=== PATIENT | male | born 1970 | race Caucasian/White ===

== ENCOUNTER 2021-05-29 14:41 | Emergency (ER) | payer OTHER ==
[~2021-05-29] VITALS: Ht 167.6 cm; Wt 90.7 kg
[2021-05-29] MEDS ORDERED: PLAVIX75 MG (15:46)
[2021-05-29] MEDS ORDERED: LOTREL 5-10 MG1 CAP (15:47)
[2021-05-29] MEDS ORDERED: AMOX-CLAV 875-1 EACH PO (18:16)
== END 2021-05-29 18:26 | disposition home or self-care (01) ==
LOC: ER 14:41
DX: S62.632A Displaced fracture of distal phalanx of right middle finger, initial encounter for closed fracture (principal); S61.222A Laceration with foreign body of right middle finger without damage to nail, initial encounter; S60.031A Contusion of right middle finger without damage to nail, initial encounter; W23.0XXA Caught, crushed, jammed, or pinched between moving objects, initial encounter; Y93.89 Activity, other specified; Y92.094 Garage of other non-institutional residence as the place of occurrence of the external cause; Y99.8 Other external cause status